=== PATIENT | male | born 1970 | race Caucasian/White ===

== ENCOUNTER 2018-11-23 11:04 | Day surgery (SDC) | payer OTHER ==
[~2018-11-23] VITALS: Ht 177.8 cm; Wt 82.6 kg
[~2018-11-23 11:04] MED LIST: IBUP-1114 PO; LR 1,000 ML IV ONE; MIDAZOLAM INJ 2 MG/2 ML VIAL (J2250) IV SCH; NICO21DI37 TOP; ceFAZolin SOD 2 GM in IV 1 EA IV ONE; fentaNYL 100 MCG/2 ML INJECTION (J3010) IV SCH
[2018-11-23] MEDS ORDERED: ROPIvacaine 0.5% 30 ML INJECTION (J2795 PER 1MG) ONE (11:05)
[2018-11-23] MEDS ORDERED: EPINEPHrine INJ 1 MG/ML 1ML VIAL ONE (11:05)
[2018-11-23] MEDS ORDERED: dexameTHASONE 10 MG/1 ML VIAL PRES.FREE (J1100) ONE (11:05)
[2018-11-23] MEDS ORDERED: MIDAZOLAM INJ 2 MG/2 ML VIAL (J2250) As Ordered ONE ×2 (12:02→15:34)
[2018-11-23] MEDS ORDERED: fentaNYL 100 MCG/2 ML INJECTION (J3010) As Ordered ONE ×2 (12:02→15:34)
[2018-11-23] MEDS ORDERED: BUPIVACAINE HCL 0.5% 30 ML VIAL As Ordered ONE (13:17)
[2018-11-23] MEDS ORDERED: HYDROmorphone HCL 2 MG/ML 1ML VIAL (J1170) As Ordered ONE (15:34)
[2018-11-23] MEDS ORDERED: SUGAMMADEX SODIUM 500 MG/5 ML VIAL (BRIDION) As Ordered ONE (15:34)
[2018-11-23] MEDS ORDERED: LIDOCAINE 2% INJ 100 MG/5 ML SDV (FOR ANES.) As Ordered ONE (15:34)
[2018-11-23] MEDS ORDERED: ROCURONIUM BROMIDE 50 MG/5 ML VIAL As Ordered ONE (15:34)
[2018-11-23] MEDS ORDERED: ONDANSETRON 4MG/2ML VIAL (J2405) As Ordered ONE (15:34)
[2018-11-23] MEDS ORDERED: KETOROLAC 60 MG/2 ML VIAL (J1885) As Ordered ONE (15:34)
[2018-11-23] MEDS ORDERED: dexameTHASONE 4 MG/ML 1ML VIAL (J1100) As Ordered ONE (15:34)
[2018-11-23] MEDS ORDERED: propofoL 200 MG/20 ML VIAL As Ordered ONE ×2 (15:34→15:41)
[2018-11-23] MEDS ORDERED: LR 1,000 ML IV SCH ×2 (16:30→17:31)
[2018-11-23] MEDS ORDERED: ONDANSETRON 4MG/2ML VIAL (J2405) IV PRN (16:30)
[2018-11-23] MEDS ORDERED: oxyCODONE 5MG TAB PO PRN (16:30)
[2018-11-23] MEDS ORDERED: fentaNYL 100 MCG/2 ML INJECTION (J3010) IV PRN (16:30)
--- NOTE | 2018-11-23 18:02 | RO ---
DATE OF PROCEDURE: 11/23/2018 PREOPERATIVE DIAGNOSES: 1. Right knee anterior cruciate ligament tear. 2. Right knee medial and lateral meniscus tear. 3. Right knee osteoarthritis. POSTOPERATIVE DIAGNOSES: 1. Right knee anterior cruciate ligament tear. 2. Right knee medial and lateral meniscus tear. 3. Right knee osteoarthritis. PROCEDURES: 1. Right knee arthroscopic-assisted anterior cruciate ligament reconstruction with allograft. 2. Right knee arthroscopic partial medial and lateral meniscectomy and chondroplasty. SURGEON: Dr. Jeffery Lund DOOR MAKER: SHILOH Talbot ANESTHESIA: General with preoperative nerve block. IV FLUIDS: Lactated Ringer's. ESTIMATED BLOOD LOSS: 10 mL. IMPLANTS: Arthrex 8 x 23 and 10 x 28 PEEK interference screws. CLOSURE: Nylon. DESCRIPTION OF PROCEDURE: The patient was identified in the preoperative holding area, and the right leg was marked by myself. He had a nerve block by anesthesia. He was brought to the operating room, placed supine on a well-padded operating room (OR) table. General anesthesia was induced. He received appropriate intravenous (IV) antibiotics within 1-hour of incision. Exam under anesthesia revealed range of motion from 0 to 140 degrees, minimal laxity to valgus stress. Stable to varus stress. A grade 2 plus B Ramirez, positive pivot shift, negative posterior drawer. A well-padded tourniquet was applied of the right thigh. Sandbag taped to the bottom of the table. The right leg was then prepped and draped in a normal sterile fashion with ChloraPrep from the toes up to the tourniquet. He received appropriate IV antibiotics. The right leg was then prepped and draped in a normal sterile fashion. Prior to incision, a time-out was performed per hospital protocol. Shree was present for the entire procedure and participated in all essential portions of the procedure. This included patient positioning and draping, preparing the allograft on the back table, holding the arthroscope, providing hyperflexion to the knee and retrieving sutures and the wound closure. On the back table, my assistant professor sculpture prepared the Achilles allograft, which was a precut graft. The bone block was sized to a 22 x 10 mm. It had two drill holes, #2 FiberWire passed through each. A running locking whipstitch was passed through the midportion of the graft with #2 FiberWire. Excess graft was trimmed and discarded. This was protected in a moist sponge on the back table. 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 No loose bodies. Medial compartment was entered where there was a focal area of grade 3 chondromalacia, otherwise grade 1. Grade 1 in the tibia. No obvious tear in the medial meniscus. The anterior cruciate ligament (ACL) was clearly torn, but there were fibers scarred into the notch. Leg was brought to figure-four position and the lateral compartment inspected where there was grade 1 to 2 chondromalacia of tibial plateau and some free edge tearing of the lateral meniscus. An anteromedial portal was created under direct visualization to give the appropriate angle for drilling an AM portal. On probing the medial meniscus, there was an unstable tear within the white zone. The root was stable. I performed a partial medial meniscectomy, removing approximately one-third of the posterior horn. All remaining medial meniscus tissue was stable. A chondroplasty was performed of the medial femoral condyle with the shaver. Shaver was then used to remove the anterior cruciate ligament (ACL) fibers after I had probed the ACL, and it was found to be significantly lax. So all the ACL fibers were removed, soft tissue cleared off the lateral femoral condyle, and the appropriate position for a single bundle ACL reconstruction was marked with the curette. I then proceeded with a partial lateral meniscectomy to remove the inner free edge tearing, removing approximately 10% of the lateral meniscus. All remaining lateral meniscus tissue was stable. An 8 mm [id number] guide was placed through the AM portal and a Beath pin was advanced out the lateral femoral condyle with a drill. A 10 mm low profile acorn reamer was then placed over the guidewire and a 25 mm tunnel was drilled. Bony debris removed with the shaver. PDS passing suture placed through the Beath pin, which was advanced out the lateral thigh. Femoral tunnel was in a great position just off the articular surface with a 2 mm back wall. Next, the tibial tunnel was drilled, drill guide set to 55 degrees, a small 2 cm incision made over the anteromedial proximal tibia, and a guidewire entered the joint in line with the anterior horn lateral meniscus. The knee was brought into full extension. There was no notch impingement. 10 mm reamer used to drill a tibial tunnel. Soft tissue and some bony debris were removed at the aperture to prevent a cyclops lesion. The PDS passing suture was then retrieved out the tibial tunnel. The graft was brought into the joint, and the bone block was docked into the femoral tunnel. Nitinol wire was then placed between the bone block and tunnel, a 7 mm tap was passed senior care and then an 8 x 23 mm PEEK interference screw was placed over the Nitinol wire with the knee in hyperflexion. There was excellent fixation. The knee was then cycled. The knee was then brought into full extension up on the OR table. Large bump placed behind the femoral condyles, Nitinol wire passed between the graft and tibial tunnel, and a 10 x 28 mm PEEK interference screw was advanced with a Nitinol wire as I applied distal traction and my assistant professor sculpture applied a posterior drawer on the tibial tubercle. This had fantastic fixation. Excess graft was then trimmed and discarded. There was a grade 1A Ramirez. The knee was ranged from 0 to 110 degrees without any difficulty and the Ramirez was repeated and unchanged. The anterior cruciate ligament (ACL) graft was then probed and found to be under good tension. The knee was irrigated and drained. Incision was closed with #2-0 Vicryl and a running nylon. Portals closed with nylon suture. Tourniquet let down with excellent reperfusion. A bulky sterile dressing was applied. He was then placed into the hinged knee brace locked in extension. At the time of dictation, the patient is about to be extubated and transferred to the post-anesthesia care unit (PACU).
[2018-11-23 18:20] VITALS: BP 148/89
== END 2018-11-23 18:20 | disposition home or self-care (01) ==
LOC: M SDC 11:04
PROVIDERS: ATTEND Orthopaedic Surgery
DX: S83.31XA Tear of articular cartilage of right knee, current, initial encounter (principal); S83.281A Other tear of lateral meniscus, current injury, right knee, initial encounter; S83.241A Other tear of medial meniscus, current injury, right knee, initial encounter; X58.XXXA Exposure to other specified factors, initial encounter; Y92.89 Other specified places as the place of occurrence of the external cause; Y93.9 Activity, unspecified; Y99.9 Unspecified external cause status; M17.11 Unilateral primary osteoarthritis, right knee; F17.210 Nicotine dependence, cigarettes, uncomplicated; L40.9 Psoriasis, unspecified
CPT/HCPCS: 29881; 29888; 64447; C1713; C1762; J0690; J1100; J1170; J1885; J2250; J2405; J2795; J3010

== ENCOUNTER → 2020-02-03 | Outpatient (CLI) | payer OTHER ==
[~2020-02-03] MED LIST changes: -LR 1,000 ML IV ONE; -MIDAZOLAM INJ 2 MG/2 ML VIAL (J2250) IV SCH; +[UNRECOGNIZED DRUG - CODE] PO; -ceFAZolin SOD 2 GM in IV 1 EA IV ONE; -fentaNYL 100 MCG/2 ML INJECTION (J3010) IV SCH
== END ==
LOC: M LABSMTC 11:02
PROVIDERS: ATTEND Anesthesiology
DX: Z01.812 Encounter for preprocedural laboratory examination (principal); Z20.828 Contact with and (suspected) exposure to other viral communicable diseases

== ENCOUNTER 2020-02-08 12:35 | Day surgery (SDC) | payer OTHER ==
[~2020-02-08] VITALS: Ht 177.8 cm; Wt 83.2 kg
[~2020-02-08 12:35] MED LIST changes: +LIDOCAINE 2% 100MG/5ML SDV (FOR ANES.) As Ordered ONE; +LR 1,000 ML IV ONE; +MIDAZOLAM INJ 2MG/2ML VIAL (J2250 PER 1MG) As Ordered ONE; +ONDANSETRON 4MG/2ML VIAL As Ordered ONE; +ceFAZolin SOD 2 GM in IV 1 EA IV ONE; +dexameTHASONE 10MG/1ML VIAL PRES.FREE (J1100 PER 1MG) As Ordered ONE; +dexameTHASONE 4 MG/ML 1ML VIAL (J1100 PER 1MG) As Ordered ONE; +fentaNYL 100 MCG/2 ML INJECTION (J3010) As Ordered ONE; +propofoL 200 MG/20 ML VIAL As Ordered ONE
[2020-02-08] MEDS ORDERED: MIDAZOLAM INJ 2MG/2ML VIAL (J2250 PER 1MG) As Ordered ONE (14:22)
[2020-02-08] MEDS ORDERED: BUPIVACAINE HCL 0.5% 30 ML VIAL As Ordered ONE (14:33)
[2020-02-08] MEDS ORDERED: propofoL 200 MG/20 ML VIAL As Ordered ONE (15:11)
[2020-02-08] MEDS ORDERED: fentaNYL 100 MCG/2 ML INJECTION (J3010) As Ordered ONE (16:10)
[2020-02-08] MEDS ORDERED: KETOROLAC 60MG 2ML VIAL As Ordered ONE (16:33)
[2020-02-08] MEDS ORDERED: ACETAMINOPHEN 1000MG 100ML IV BTL (OFIRMEV) (J0131 PER 10MG) As Ordered ONE (16:33)
[2020-02-08] MEDS ORDERED: LR 1,000 ML IV SCH ×2 (18:00→18:30)
[2020-02-08] MEDS ORDERED: fentaNYL 100 MCG/2 ML INJECTION (J3010) IV PRN (18:00)
[2020-02-08] MEDS ORDERED: ONDANSETRON 4MG/2ML VIAL IV PRN (18:00)
[2020-02-08] MEDS ORDERED: oxyCODONE 5MG TAB PO PRN (18:00)
[2020-02-08] MEDS ORDERED: METOCLOPRAMIDE INJ 10MG/2ML VIAL (J2765 PER 1) IV PRN (18:00)
[2020-02-08] MEDS ORDERED: MORPHINE 2 MG/ML 1ML VIAL (J2270) IV PRN (18:00)
[2020-02-08 19:10] VITALS: BP 152/99
--- NOTE | 2020-02-11 10:51 | RO ---
DATE OF OPERATION: 02/08/2020 PREOPERATIVE DIAGNOSIS: 1. Right knee traumatic anterior cruciate ligament (ACL) re-rupture. 2. Right knee osteoarthritis. POSTOPERATIVE DIAGNOSIS: 1. Right knee traumatic anterior cruciate ligament (ACL) re-rupture. 2. Right knee osteoarthritis. PROCEDURE: 1. Right knee revision arthroscopic assisted anterior cruciate ligament (ACL) reconstruction with Achilles allograft. 2. Right knee arthroscopic hardware removal. 3. Right knee chondroplasty and synovectomy. SURGEON: Jeffery Lund M.D. TASSEL CLIPPER: SHILOH Wagner ANESTHESIA: General. IV FLUID: Lactated Ringers ESTIMATED BLOOD LOSS: 25 cc. PREOPERATIVE DIAGNOSIS: 3. Right knee traumatic anterior cruciate ligament (ACL) re-rupture. 4. Right knee osteoarthritis. POSTOPERATIVE DIAGNOSIS: 3. Right knee traumatic anterior cruciate ligament (ACL) re-rupture. 4. Right knee osteoarthritis. PROCEDURE: 4. Right knee revision arthroscopic assisted anterior cruciate ligament (ACL) reconstruction with Achilles allograft. 5. Right knee arthroscopic hardware removal. 6. Right knee chondroplasty and synovectomy. SURGEON: Jeffery Lund M.D. TASSEL CLIPPER: SHILOH Wagner ANESTHESIA: General. IV FLUID: Lactated Ringers ESTIMATED BLOOD LOSS: 25 cc. IMPLANTS: Arthrex 8 x 23 mm PEEK interference screw in the femur and Arthrex 11 x 28 mm PEEK interference screw in the tibia. CLOSURE: Nylon. OPERATIVE PROCEDURE: The patient identified in the preoperative holding area. The right knee was marked. He was brought back to the operating room, placed supine on a well-padded OR table. General anesthesia induced. Examination under anesthesia revealed range of motion from 1 to 135 degrees, grade 1 maximum to valgus stress at 30 degrees, grade 2 B Ramirez, positive pivot shift, negative posterior drawer. A well padded tourniquet was applied to the right side and the right leg was prepped and draped in the normal sterile fashion with ChloraPrep. He received appropriate IV antibiotics within one hour of incision. Leighton Laguerre was present for the entire procedure and anticipated in all essential portions of the procedure. This included patient positioning and draping, holding the arthroscope, preparing the allograft on the back table, hyperflexing the knee and stabilizing the knee for drilling an anteromedial portal formal tunnel, as well as assisting with graft passage, screw placement and wound closure. So following the time-out, the right leg was exsanguinated with Esmarch bandage and the tourniquet inflated to 275 mmHg. The knee was insufflated with lactate Ringers. Anterolateral portal from the prior incision was made with an 11 blade. 30 degree arthroscope introduced into the joint revealing primarily grade 1 chondromalacia throughout the patella with an area of grade 2 at the far medial facet and an area of grade 2 versus 3 centrally. Trochlea had grade 1 chondromalacia. The medial compartment was entered where there was primarily grade 1 chondromalacia with one area of borderline grade 2 versus 3. The medial tibial plateau grade 1. No medial meniscus tears. ACL graft fibers from the prior surgery were still visible, but appeared lax. The leg was brought to the figure-of-4 position where there was primarily grade 1 chondromalacia in the lateral compartment and one area of grade 2 at the posterior tibial plateau and from free edge fraying of the lateral meniscus. The prior anteromedial portal incision was made with an 11 blade; and on probing the mediolateral meniscus, there were no unstable tears. The shaver was used to debride the free edge fraying lateral meniscus, as well as perform a chondroplasty to the posterolateral tibial plateau. Shaver was used to perform a chondroplast of the medial femoral condyle and to the patella. The shaver and radiofrequency cautery was then used to remove the prior ACL graft fibers after probing it and finding the fibers to be under poor tension. So, the graft was removed, the shaver and cautery and the screw in the femoral tunnel was visualized and then the screwdriver was used with the knee in a hyperflexed position and the PEEK screw was removed without difficulty. The Beath pin was advanced on power out the femoral tunnel with the knee hyperflexed and then a 10 mm low profile [place] reamer was used to re-drill the femoral tunnel, which had filled in from the prior bone block. FiberWire passing suture was passed out on the Beath pin. Soft tissue was cleared out at the tibial aperture. An incision was made with a 15 blade at the medial tibial plateau and dissection with electrocautery down to the bone. The prior PEEK screw was visualized and was removed; that was a 10 diameter screw. It still had some bite. The curette was then used to remove soft tissue graft material from the tibial tunnel. Next, the Beath pin was placed through that tunnel into the joint and then a 10 mm survey research center director was used over that and brought up into the joint. Soft tissue at the tibial aperture was removed, with the shaver to prevent a cyclops lesion. The FiberWire passing suture was retrieved out the tibial tunnel. My nurse first aid on the back table after thawing a precut Achilles allograft with a 10 mm diameter bone dowel, this was trimmed down to 22 mm in length and the tip was bulleted. Two drill holes placed in the bone and #2 FiberWire placed through each. A running locking whip stitch was placed with #2 FiberWire starting 6 cm distal to the bone tendon interface and then running towards the bone for 3 cm and then back towards the soft tissue end. Excess graft was cut and discarded. The graft was then passed into the joint and the knee was hyperflexed and the bone block was docked. A Nitinol wire was placed between the bone block and tunnel and then an 8 x 23 mm PEEK interference screw was placed with the knee in hyperflexion and the screw had excellent fixation. The knee was brought into full extension. There is no notch impingement. The knee was brought up on the OR table. Large bumps were placed behind the femoral condyles. The head of the Nitinol wire was passed up the tibial tunnel and then an 11 x 28 mm PEEK interference screw was advanced over the Nitinol wire as I applied distal traction to the sutures and my driller's assistant applied a posterior drawer at tibial tubercle. The screw had a fantastic fixation. I had been planning on a backup fixation on the tibia, but the bite was absolutely fantastic. This is a grade 1 Ramirez now. The knee was brought into full extension and then flexed to 120 degrees. Ramirez repeated and there is no change, nice tight grade 1 A Ramirez and negative pivot shift. The knee was irrigated. The graft was inspected and probed and find to be in a great tension. Tourniquet let down with excellent reperfusion. Portals were closed with nylon suture. The medial tibial incision was closed with 2-0 Vicryl followed by a running nylon. I injected a total of 30 cc of 0.5% Marcaine without epinephrine both at the incisions and into the joint. Bulky sterile dressing applied. The knee was placed into a hinge knee brace, locked in extension. He was extubated and transferred to the PACU in stable condition. Plan: The patient will be weightbearing as tolerated with crutches and brace. Aspirin for deep venous thrombosis (DVT) prophylaxis. Starting physical therapy within a week. MTDD
== END 2020-02-08 19:25 | disposition home or self-care (01) ==
LOC: M SDC 12:35
PROVIDERS: ATTEND Orthopaedic Surgery
DX: S83.511A Sprain of anterior cruciate ligament of right knee, initial encounter (principal); M17.11 Unilateral primary osteoarthritis, right knee; M22.41 Chondromalacia patellae, right knee; F17.210 Nicotine dependence, cigarettes, uncomplicated; R06.83 Snoring; X58.XXXA Exposure to other specified factors, initial encounter; Y92.9 Unspecified place or not applicable; Y93.9 Activity, unspecified; Y99.9 Unspecified external cause status
CPT/HCPCS: 29888; C1713; C1762; J0131; J0690; J1100; J1885; J2250; J2405; J3010

== ENCOUNTER → 2021-07-15 | Outpatient (REF) ==
[~2021-07-15] MED LIST changes: -LIDOCAINE 2% 100MG/5ML SDV (FOR ANES.) As Ordered ONE; -LR 1,000 ML IV ONE; -MIDAZOLAM INJ 2MG/2ML VIAL (J2250 PER 1MG) As Ordered ONE; -ONDANSETRON 4MG/2ML VIAL As Ordered ONE; +[UNRECOGNIZED DRUG - CODE] PO; -[UNRECOGNIZED DRUG - CODE] PO; -ceFAZolin SOD 2 GM in IV 1 EA IV ONE; -dexameTHASONE 10MG/1ML VIAL PRES.FREE (J1100 PER 1MG) As Ordered ONE; -dexameTHASONE 4 MG/ML 1ML VIAL (J1100 PER 1MG) As Ordered ONE; -fentaNYL 100 MCG/2 ML INJECTION (J3010) As Ordered ONE; -propofoL 200 MG/20 ML VIAL As Ordered ONE
== END ==
LOC: M PLAIMG 13:48
PROVIDERS: ATTEND Internal Medicine
DX: M19.90 Unspecified osteoarthritis, unspecified site (principal)

== ENCOUNTER → 2024-06-19 | Outpatient (CLI) | payer OTHER ==
[~2024-06-19] MED LIST changes: +ACET1TAB12 PO; -[UNRECOGNIZED DRUG - CODE] PO
== END ==
LOC: M RAD 11:25
PROVIDERS: ATTEND Physician Assistant
DX: I87.2 Venous insufficiency (chronic) (peripheral) (principal)